=== PATIENT | male | born 1985 | race Hispanic/Latino ===

== ENCOUNTER 2021-09-10 18:13 | Emergency (ER) | payer MEDICAID, OTHER ==
[~2021-09-10] VITALS: Ht 175.3 cm; Wt 127.0 kg
[2021-09-10 18:35] LABS: APPEARANCE,URINE Clear (CLEAR); BILIRUBIN,URINE Small (NEGATIVE); COLOR,URINE Orange (YELLOW); GLUCOSE, URINE (UA) Negative (NEGATIVE); KETONES,URINE 15 mg/dL (NEGATIVE); LEUKOCYTE ESTERASE ,URINE Small (NEGATIVE); NITRATE,URINE Negative (NEGATIVE); OCCULT BLOOD,URINE Negative (NEGATIVE); PROTEIN,URINE POS 2+ mg/dL (NEGATIVE)
[2021-09-10 19:21] LABS: BACTERIA,URINE Few /HPF (None Seen); RBC,URINE 0-1 /HPF (0-1); SQUAMOUS EPITHELIAL CELL,UR Few /HPF (0-2)
[2021-09-10 19:22] LABS: MUCUS,URINE Moderate LPF (None Seen)
[2021-09-10] MEDS ORDERED: DICYCLOMINE 20MG (10MG/ML) AMP IM STA (19:50)
[2021-09-10 19:59] LABS: BASOPHILS % (AUTO) 0.3 % (0.0-5.0); HEMATOCRIT 45.9 % (42-54); LYMPHOCYTES % (AUTO) 5.1 % (21.0-51.0); MEAN CORPUSCULAR HEMOGLOBIN 28.8 pg (27.0-33.0); MEAN CORPUSCULAR HGB CONC 34.2 g/dL (32.0-36.0); MEAN CORPUSCULAR VOLUME 84.2 fL (79-99); MONOCYTES % (AUTO) 8.4 % (3.0-13.0); NEUTROPHILS % (AUTO) 85.8 % (40.0-77.0); PLATELET COUNT (AUTO) 165 K/uL (130-400); RED BLOOD CELL COUNT(AUTO) 5.45 MIL/uL (4.50-6.20); RED CELL DISTRIBUTION WIDTH 14.1 % (11.0-15.5); WHITE BLOOD COUNT (AUTO) 11.6 K/uL (4.8-10.8)
[2021-09-10] MEDS ORDERED: ACETAMINOPHEN 500 MG TABLET PO ONE (20:00)
[2021-09-10] MEDS ORDERED: 0.9%NACL 1000ML 1,000 ML IV ONE (20:00)
[2021-09-10] MEDS ORDERED: ONDANSETRON 4MG INJ IVP ONE (20:00)
[2021-09-10 20:06] LABS: POTASSIUM 3.8 mmol/L (3.5-5.1)
[2021-09-10 20:11] LABS: ALBUMIN 4.4 g/dL (3.5-5.0); BILIRUBIN,TOTAL 3.9 mg/dL (0.2-1.0); TOTAL PROTEIN, SERUM 7.8 g/dL (6.0-8.3)
[2021-09-10] MEDS ORDERED: FAMO-136 PO (21:57)
[2021-09-10] MEDS ORDERED: ONDA4TAB10 PO (21:57)
[2021-09-10] MEDS ORDERED: DICY20TA2 PO (21:57)
[2021-09-10] MEDS ORDERED: L.AC1CAP6 PO (21:57)
[2021-09-10] MEDS ORDERED: ACET-66 PO (21:57)
[2021-09-10 21:59] VITALS: BP 103/57
== END 2021-09-10 22:12 | disposition home or self-care (01) ==
LOC: EDH 18:13
DX: A05.9 Bacterial foodborne intoxication, unspecified (principal); Z20.822 Contact with and (suspected) exposure to COVID-19; Z79.899 Other long term (current) drug therapy
CPT/HCPCS: 36415; 76705; 80053; 81001; 83690; 85025; 87635; 87804 ×2; 96361; 96372; 96374; 99285; C9803; J0500; J2405; J7030